=== PATIENT | male | born 1945 | race Native Hawaiian/Other Pacific Islander ===

== ENCOUNTER 2020-04-13 14:53 | Outpatient (CLI) | payer OTHER ==
[2020-04-13 15:47] LABS: PLATELET COUNT 219 K/uL (142-355)
[2020-04-13 16:12] LABS: POTASSIUM 4.9 mmol/L (3.6-5.2)
== END 2020-04-13 20:29 | disposition home or self-care (01) ==
LOC: LAB 14:53
PROVIDERS: ATTEND Nurse Practitioner Family
DX: Z00.00 Encounter for general adult medical examination without abnormal findings (principal); Z79.899 Other long term (current) drug therapy; I10 Essential (primary) hypertension; G47.09 Other insomnia; E03.8 Other specified hypothyroidism; M19.90 Unspecified osteoarthritis, unspecified site; E53.8 Deficiency of other specified B group vitamins; E55.9 Vitamin D deficiency, unspecified
CPT/HCPCS: 80053; 80061; 82306; 82607; 83036; 84439; 84443; 85027

== ENCOUNTER 2020-09-07 17:28 | Outpatient (CLI) | payer OTHER ==
[2020-09-07 18:02] LABS: PLATELET COUNT 202 K/uL (142-355)
[2020-09-07 18:29] LABS: POTASSIUM 4.3 mmol/L (3.6-5.2)
== END 2020-09-07 20:34 | disposition home or self-care (01) ==
LOC: LAB 17:28
PROVIDERS: ATTEND Nurse Practitioner Family
DX: Z00.00 Encounter for general adult medical examination without abnormal findings (principal); I10 Essential (primary) hypertension; E03.8 Other specified hypothyroidism; E55.9 Vitamin D deficiency, unspecified; Z86.69 Personal history of other diseases of the nervous system and sense organs; G47.00 Insomnia, unspecified; M19.90 Unspecified osteoarthritis, unspecified site; Z79.899 Other long term (current) drug therapy; R53.83 Other fatigue; R53.81 Other malaise
CPT/HCPCS: 36415; 80053; 80061; 82306; 82607; 83036; 84439; 84443; 85027